=== PATIENT | female | born 1975 | race Caucasian/White ===

== ENCOUNTER 2022-10-29 17:13 | Outpatient (REF) | payer OTHER, SELFPAY ==
--- NOTE | ~2022-10-29 | XR_ITS ---
EXAMINATION: XR SHOULDER, RIGHT CLINICAL INFORMATION: Pain in right shoulder COMPARISON: None TECHNIQUE: Three views of the right shoulder. FINDINGS: Alignment of the right shoulder is normal. No acute osseous abnormality. Mild sclerosis is seen at the greater tuberosity of the humeral head which could relate to rotator cuff disease. No soft tissue calcifications are seen. XR/XR shoulder RT min 2V IMPRESSION: Normal alignment. No acute osseous abnormality is seen. Mild sclerosis at the greater tuberosity of the humeral head which could relate to rotator cuff disease.
== END 2022-10-29 17:14 | disposition home or self-care (01) ==
LOC: HO.HOSX 17:13
PROVIDERS: Visit Provider Physician Assistant
DX: M75.81 Other shoulder lesions, right shoulder (principal)
CPT/HCPCS: 20610; 73030; J1040

== ENCOUNTER → 2023-03-07 10:10 | Outpatient (BNVA) | payer OTHER, SELFPAY | PROVIDERS: PCP Nurse Practitioner Family; Visit Provider Physician Assistant ==

== ENCOUNTER 2024-04-30 08:57 | Outpatient (AMB) | payer OTHER, SELFPAY ==
--- NOTE | 2024-04-30 09:06 | MHC.OFFVIS ---
Intake Visit Reasons: OV- RT shoulder follow up Intake Note: Fiorella a 48 year old female who presents today for a follow up of right shoulder pain. Patient reports ongoing shoulder pain that comes and goes. States some improvement with attending PT. 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 Allergies No Known Allergies Allergy (Verified 04/30/24 09:17) Medication List - Last Reconciled 04/30/24 by Geovanny Reeves PA-C No Known Home Meds HPI HPI OV- RT shoulder follow up: Details: Fiorella is a 48-year-old female who presents today for a follow-up of right shoulder pain. She reports intermittent shoulder pain. She reports that there has been mild improvement since starting PT. 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 She states that she gets dizzy when she gets up from sitting to standing position. She also has been experiencing joint pain. [facility] Medical History History of arthritis Surgical History Hx of carpal tunnel repair Social History Patient Tobacco Use Status: Current someday Tobacco user Current occupation: kitchen Review of Systems Const All systems reviewed & are unremarkable except as noted in HPI and below Physical Exam Const General: cooperative, healthy appearing, comfortable and no acute distress Orientation/consciousness: patient oriented x3 Neck Neck: Yes normal visual inspection and Yes no JVD Chest Chest palpation & inspection: normal inspection of the chest Resp Effort & Inspection: normal respiratory effort Auscultation: clear to auscultation bilaterally, crackles (no), rales (no), rhonchi (no) and wheezes (no) Cardio Jugular venous distension: no JVD Rate: regular rate Rhythm: regular rhythm Heart sounds: S1 normal heart sound present, S2 normal heart sound present, Murmur heart sound present (no) and Rub heart sound present (no) Peripheral pulses: Peripheral pulses 2+ throughout Neuro General: patient oriented x3 Extrem Other: Right shoulder normal to inspection. Improved Tenderness over the bicipital groove. FF to 175, ER to 90, IR to S1. 5/5 RTC strength, negative guardado, positive cross body abduction. She does have hypermobility of several joint including her knees, wrist, hands and shoulder. NVI. General: Yes normal to inspection, Yes no pedal edema and Yes no calf tenderness Psych Appearance: grossly normal Mental Status: mental status grossly normal Speech and movement: Normal speech and movement present Assessment & Plan Assessment & Plan (1) Joint laxity: Code(s): M25.20 - Flail joint, unspecified joint Category: Medical Plan Overall, she is doing well with the right shoulder. Her main concern is multiple complaints with her joints and other symptoms such as dizziness. I put in a referral for rheumatology to further assess her and rule out perhaps some inflammatory conditions or connective tissue disorders. She has content with this plan and we will see me back as needed. Orders: Referrals Rheumatology Referral M25.20 - Flail joint, unspecified joint, M35.3 - Polymyalgia rheumatica Patient Instructions: Scribed for Geovanny Reeves PA-C, by Ivan Hogue medical administrative assistant, on 04/30/2024 at 9:15 AM UBALDO. Christy, Geovanny Reeves PA-C, have personally reviewed and agree with the information entered by the scribe. Coding Level of Care Code Est Pt Level 3 (45672) Diagnoses Joint laxity M25.20
== END 2024-04-30 09:36 | disposition home or self-care (01) ==
PROVIDERS: PCP Nurse Practitioner Family; Visit Provider Physician Assistant
DX: M25.211 Flail joint, right shoulder (principal)
CPT/HCPCS: 99212

== ENCOUNTER → 2024-04-30 08:57 | Outpatient (BNVA) | payer OTHER, SELFPAY | PROVIDERS: PCP Nurse Practitioner Family; Visit Provider Physician Assistant ==

== ENCOUNTER 2024-07-23 10:56 | Outpatient (AMB) | payer OTHER, SELFPAY ==
[2024-07-23 11:07] VITALS: BP 130/80; PULSE 77; O2SAT 98; BMI 41.4
--- NOTE | 2024-07-23 11:07 | A.OFFVIS_ITS ---
Vital Signs 07/23/24 11:07 Height 5 ft 2 in Weight 226 lb 10.163 oz BMI 41.4 BP 130/80 Blood Pressure Location Lt brachial Position Sitting Pulse 77 Pulse Source Pulse Oximeter Pulse Oximetry (%) 98 Oxygen Delivery Method Room Air Intake Visit Reasons: PMR/CM Intake Note: [employer] internally referred by Leandro Small, Orthopedic. Presents today for PMR. She is curious Ehler's Danlos. How long? 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 She states she uses voltaren a lot. Accompanied by: Spouse Allergies No Known Allergies Allergy (Verified 07/23/24 11:13) HPI Comments Details: This is a 49-year-old female who presents for evaluation of Ron-Danlos. States that she has been hypermobile all her life. She feels that her right shoulder comes out of her socket intermittently. She never went to the emergency room however with this and never required a procedure for shoulder dislocation. She states that she gets intermittent knee pains if she moves and bends her knees the wrong way. She does not recall a specific injury however such as a meniscal tear or a ligament tear. Denies any procedures related to her knees. Patient had multiple rounds of intra uterine insemination and was unsuccessful. She was never able to get . She denies any history of heart disease but gets intermittent palpitations. [facility] Medical History History of arthritis Surgical History Hx of carpal tunnel repair Social History Patient Tobacco Use Status: Current someday Tobacco user Current occupation: kitchen Review of Systems Musc Details: Hypermobile joints Reports arthralgias Physical Exam Vital Signs: Last Vital Signs Pulse 77 07/23/24 11:07 BP 130/80 07/23/24 11:07 Pulse Ox 98 07/23/24 11:07 Oxygen Delivery Method Room Air 07/23/24 11:07 BMI result Body Mass Index 41.4 Const General: cooperative, healthy appearing and comfortable Nutritional Appearance: obese morbidly obese Orientation/consciousness: patient oriented x3 Limitations: no limitations HEENT Head: Yes normocephalic and Yes atraumatic Mouth: moist mucous membranes Resp Effort & Inspection: normal respiratory effort and able to speak in complete sentences Auscultation: clear to auscultation bilaterally Cardio Rate: regular rate Rhythm: regular rhythm Skin General skin exam: no rashes or lesions noted Neuro General: patient oriented x3 Extrem Other: Hyperextensible PIP is No hyperextensible elbows or thumbs Patient almost able to put both palms on the floor with knees straight Bilateral genu valgus Assessment & Plan Assessment & Plan (1) Hypermobility syndrome: Code(s): M35.7 - Hypermobility syndrome Category: Medical Plan: This is a 49-year-old female who presents for evaluation of hypermobility. On exam she is hyper mobile. Discussed hypermobility. Advised patient that she will likely require a referral to a geomorphology teacher to confirm or rule out Ron- Danlos. Discuss with PCP. Discussed management of hypermobility which generally consist of physical therapy evaluation for education about joint protection techniques as well as strengthening. Consider getting a 2D echo to rule out valvular abnormalities and/or aortic root abnormalities associated with hypermobility syndromes. Discuss with PCP Plan I spent 30 minutes reviewing patient's chart, evaluating patient, counseling patient and documenting in the chart Coding Level of Care Code New Pt Level 3 (23080) Diagnoses Hypermobility syndrome M35.7
== END 2024-07-23 11:40 | disposition home or self-care (01) ==
PROVIDERS: PCP Nurse Practitioner Family; Visit Provider Student in an Organized Health Care Education/Training Program
DX: M35.7 Hypermobility syndrome (principal)
CPT/HCPCS: 99203

== ENCOUNTER → 2024-07-23 10:56 | Outpatient (BNVA) | payer OTHER, SELFPAY | PROVIDERS: PCP Nurse Practitioner Family; Visit Provider Student in an Organized Health Care Education/Training Program ==